=== PATIENT | female | born 2000 | race Two or more races ===

== ENCOUNTER 2018-05-29 17:05 | Emergency (ER) | payer MEDICAID ==
[~2018-05-29] VITALS: Ht 154.9 cm; Wt 67.6 kg
[2018-05-29 17:24] VITALS: BP 112/69
== END 2018-05-29 18:17 | disposition home or self-care (01) ==
LOC: ER 17:09
DX: S60.861A Insect bite (nonvenomous) of right wrist, initial encounter (principal); J45.909 Unspecified asthma, uncomplicated; W57.XXXA Bitten or stung by nonvenomous insect and other nonvenomous arthropods, initial encounter; Y93.89 Activity, other specified; Y99.8 Other external cause status; Y92.89 Other specified places as the place of occurrence of the external cause

== ENCOUNTER 2018-10-03 14:21 | Emergency (ER) | payer MEDICAID ==
[~2018-10-03] VITALS: Ht 152.4 cm; Wt 72.6 kg
[2018-10-03 14:27] VITALS: BP 116/64
== END 2018-10-03 15:53 | disposition left against medical advice (07) ==
LOC: ER 14:25
DX: R52 Pain, unspecified (principal); Z53.21 Procedure and treatment not carried out due to patient leaving prior to being seen by health care provider

== ENCOUNTER 2018-12-09 20:04 | Emergency (ER) | payer MEDICAID ==
[~2018-12-09] VITALS: Ht 152.4 cm; Wt 63.5 kg
[2018-12-09 20:31] VITALS: BP 122/68
[2018-12-09 21:22] LABS: Eosinophils # (auto) 0.7 uL; Hemoglobin 14.5 g/dL (12.2-16.2); Monocytes # (auto) 0.5 uL; White Blood Cell 6.7 10^3/uL (4.4-10.8)
[2018-12-09 21:26] LABS: Basophils # (auto) 0 uL; Basophils % (auto) 0.4 % (0.0-2.0); Eosinophils % (auto) 10.1 % (0.0-7.0); Hematocrit 43.3 % (36.0-46.0); Lymphocytes # (auto) 2.1 uL; Lymphocytes % (auto) 31.6 % (10.0-50.0); Mean Corpuscular Hemoglobin 29.8 pg (28.0-32.0); Mean Corpuscular Hgb Conc. 33.5 g/dL (32.0-36.0); Monocytes % (auto) 7.8 % (0.0-12.0); Neutrophils # (auto) 3.3 uL; Neutrophils % (auto) 50.1 % (37.0-80.0); Nucleated Red Blood Cells % 0.1 %; Platelet Count (auto) 274 10^3/uL (140-450); Red Blood Cells 4.87 10^6/uL (4.0-5.20); Red Cell Distribution Width 13.5 % (11.8-14.3)
[2018-12-09 21:29] LABS: Urine Bacteria MOD /hpf (None Seen); Urine Blood Negative /uL (Negative); Urine Mucus FEW (None Seen); Urine Specific Gravity 1.035 (1.001-1.035); Urine Sperm PRESENT /hpf (None Seen); Urine WBC 7 /hpf (0 - 5)
[2018-12-09 21:41] LABS: Albumin 3.9 g/dL (3.4-5.0); Calcium 8.9 mg/dL (8.5-10.1); Potassium 3.8 mmol/L (3.5-5.1)
[2018-12-09 21:46] LABS: BUN/Creatinine Ratio 18.1; Bilirubin, Total 0.3 mg/dL (0.2-1.0); Total Protein 7.8 g/dL (6.4-8.2)
== END 2018-12-09 22:58 | disposition left against medical advice (07) ==
LOC: ER 20:05
DX: R42 Dizziness and giddiness (principal); Z53.21 Procedure and treatment not carried out due to patient leaving prior to being seen by health care provider
CPT/HCPCS: 36415; 80053; 81001; 81025; 85025

== ENCOUNTER 2019-01-05 22:55 | Emergency (ER) | payer MEDICAID ==
[~2019-01-05] VITALS: Ht 152.4 cm; Wt 65.8 kg
[2019-01-06] MEDS ORDERED: IBUPROFEN 800 MG TAB PO ONE (06:15)
[2019-01-06 06:18] VITALS: BP 107/71
== END 2019-01-06 06:26 | disposition home or self-care (01) ==
LOC: ER 22:57
DX: S50.01XA Contusion of right elbow, initial encounter (principal); J45.909 Unspecified asthma, uncomplicated; W18.09XA Striking against other object with subsequent fall, initial encounter; Y93.89 Activity, other specified; Y92.89 Other specified places as the place of occurrence of the external cause; Y99.8 Other external cause status
CPT/HCPCS: 73080

== ENCOUNTER 2020-12-01 21:24 | Emergency (ER) | payer MEDICAID ==
[~2020-12-01] VITALS: Ht 165.1 cm; Wt 68.0 kg
[2020-12-01 23:57] LABS: Urine Amorphous Crystal FEW /hpf (None Seen); Urine Bacteria FEW /hpf (None Seen); Urine Blood Negative /uL (Negative); Urine Mucus FEW (None Seen); Urine WBC 41 /hpf (0 - 5)
[2020-12-02] MEDS ORDERED: HYDROcodone-ACET 7.5/325MG TAB PO ONE (03:30)
[2020-12-02] MEDS ORDERED: DexAMETHasone SOD PHOS 10MG/1ML VIAL INJ IM ONE (03:30)
[2020-12-02] MEDS ORDERED: KETOROLAC TROMETH 60MG/2ML VIAL IM ONE (03:30)
[2020-12-02 04:59] VITALS: BP 109/60
== END 2020-12-02 05:18 | disposition home or self-care (01) ==
LOC: ER 21:24
DX: S33.5XXA Sprain of ligaments of lumbar spine, initial encounter (principal); N30.90 Cystitis, unspecified without hematuria; J45.909 Unspecified asthma, uncomplicated; X58.XXXA Exposure to other specified factors, initial encounter; Y93.89 Activity, other specified; Y92.89 Other specified places as the place of occurrence of the external cause; Y99.8 Other external cause status
CPT/HCPCS: 81001; 81025; 96372; 99284; J1100; J1885

== ENCOUNTER 2022-02-18 21:24 | Emergency (ER) | payer MEDICAID ==
[~2022-02-18] VITALS: Ht 152.4 cm; Wt 74.7 kg
[2022-02-18 22:44] VITALS: BP 125/82
[2022-02-18 23:33] LABS: Basophils # (auto) 0 10 ^3/uL (0-0.2); Basophils % (auto) 0.6 % (0.0-2.0); Eosinophils # (auto) 0.7 10 ^3/uL (0-0.8); Eosinophils % (auto) 9.8 % (0.0-7.0); Hematocrit 42.4 % (36.0-46.0); Lymphocytes # (auto) 2.6 10 ^3/uL (0.4-5.4); Lymphocytes % (auto) 37.5 % (10.0-50.0); Mean Corpuscular Hemoglobin 29.2 pg (28.0-32.0); Mean Corpuscular Volume 88.4 fL (80.0-100.0); Monocytes # (auto) 0.4 10 ^3/uL (0-1.3); Monocytes % (auto) 5.8 % (0.0-12.0); Neutrophils # (auto) 3.3 10 ^3/uL (1.6-8.6); Neutrophils % (auto) 46.3 % (37.0-80.0); Nucleated Red Blood Cells % 0.1 %; Red Blood Cells 4.79 10^6/uL (4.0-5.20); Red Cell Distribution Width 13.1 % (11.8-14.3)
[2022-02-18 23:50] LABS: Albumin 3.8 g/dL (3.4-5.0); Calcium 9.2 mg/dL (8.5-10.1); Potassium 3.8 mmol/L (3.5-5.1)
[2022-02-18 23:53] LABS: BUN/Creatinine Ratio 15.4; Bilirubin, Total 0.3 mg/dL (0.2-1.0); Total Protein 7.9 g/dL (6.4-8.2)
== END 2022-02-19 01:39 | disposition left against medical advice (07) ==
LOC: ER 21:29
DX: R10.13 Epigastric pain (principal); E78.5 Hyperlipidemia, unspecified
CPT/HCPCS: 36415; 74176; 80053; 83690; 85025